=== PATIENT | male | born 2000 | race Asian ===

== ENCOUNTER 2024-03-20 18:19 | Emergency (ER) | payer OTHER ==
[2024-03-20 18:43] VITALS: TEMP 97.7; BMI 28.7
[2024-03-20] MEDS: SODIUM CHLORIDE 0.9% 500 ML INFUS.BAG IV ONE (19:41)
[2024-03-20 19:47] LABS: BASO % 0.6 % (0-2.0); EOS % 1.9 % (0-4.5); HEMATOCRIT 42.4 % (35.4-49); HEMOGLOBIN 14.3 GM/dL (11.7-16.9); LYMPH % 36.3 % (8-40); MCH 31.6 pg (25.7-33.7); MCHC 33.8 g/dl (32.0-35.9); MEAN CELL VOLUME 93.6 fl (80-96); MONO % 8.4 % (3.8-10.2); NEUT % 52.8 % (42.8-82.8); PLATELET COUNT 206 10^3/uL (134-434); RBC 4.53 M/mm3 (4.00-5.60); RDW 12.8 % (11.9-15.9); WHITE BLOOD COUNT 7.3 K/mm3 (4.0-10.0)
[2024-03-20 20:07] LABS: CHLORIDE 106 mmol/L (98-107); SODIUM 135 mmol/L (136-145)
[2024-03-20 20:09] LABS: ALBUMIN 4.1 g/dl (3.4-5.0); CALCIUM 8.9 mg/dL (8.5-10.1)
[2024-03-20 20:10] LABS: BLOOD UREA NITROGEN 15.6 mg/dL (7-18); CO2 27 mmol/L (21-32); GLUCOSE,RANDOM 101 mg/dL (74-106)
[2024-03-20 20:13] LABS: CREATININE 1.1 mg/dL (0.55-1.3); SGOT/AST 75 U/L (15-37)
[2024-03-20 20:20] LABS: BILIRUBIN,TOTAL 0.7 mg/dL (0.2-1); TOT PROT 7.4 g/dl (6.4-8.2)
[2024-03-20 20:21] LABS: ALK PHOS 82 U/L (45-117)
[2024-03-20 20:32] LABS: ANION GAP 2 mmol/L (4-13); POTASSIUM 6.2 mmol/L (3.5-5.1); SGPT/ALT 37 U/L (13-61)
[2024-03-20 21:24] LABS: POTASSIUM 3.6 mmol/L (3.5-5.1)
[2024-03-20 21:26] LABS: ALBUMIN 3.6 g/dl (3.4-5.0); CALCIUM 8.3 mg/dL (8.5-10.1)
[2024-03-20 21:31] LABS: BILIRUBIN,TOTAL 0.5 mg/dL (0.2-1); TOT PROT 6.3 g/dl (6.4-8.2)
[2024-03-20 21:51] LABS: URINE APPEARANCE CLEAR; URINE BILIRUBIN NEGATIVE (NEGATIVE); URINE COLOR YELLOW; URINE GLUCOSE (UA) NEGATIVE (NEGATIVE); URINE KETONE NEGATIVE (NEGATIVE); URINE LEUK ESTERASE NEGATIVE (NEGATIVE); URINE NITRITE NEGATIVE (NEGATIVE); URINE PROTEIN NEGATIVE (NEGATIVE)
[2024-03-20 22:04] LABS: COCAINE, UR NEGATIVE (NEGATIVE); URINE AMPHETAMINES NEGATIVE (NEGATIVE); URINE BARBITURATES NEGATIVE (NEGATIVE)
[2024-03-20 22:05] LABS: METHADONE, UR NEGATIVE (NEGATIVE); OPIATES, URI NEGATIVE (NEGATIVE); PHENCYCLIDINE,URINE NEGATIVE (NEGATIVE)
[2024-03-20 22:06] LABS: URINE BENZODIAZEPINES POSITIVE (NEGATIVE)
[2024-03-21 01:00] VITALS: BP 126/81; PULSE 53; RESP 20
== END 2024-03-21 01:52 | disposition short-term general hospital (02) ==
LOC: JER 18:19
DX: F32.A Depression, unspecified (principal); I95.9 Hypotension, unspecified; T42.4X4A Poisoning by benzodiazepines, undetermined, initial encounter; Z20.822 Contact with and (suspected) exposure to COVID-19
CPT/HCPCS: 0241U-QW; 36415; 80053; 80307; 81003; 82962; 85025; 93005; 93010; 99285-25

== ENCOUNTER 2024-03-21 02:36 | Inpatient (IN) | payer OTHER ==
[2024-03-21 02:42] VITALS: BMI 27.5
[2024-03-21] MEDS ORDERED: IBUPROFEN 400 MG TABLET (FP) PO PRN (03:10)
[2024-03-21] MEDS ORDERED: MAGNESIUM HYDROX 2400MG/30ML ORAL SUSPENSION 30 ML CUP PO PRN (03:10)
[2024-03-21] MEDS ORDERED: IBUPROFEN 600 MG TABLET (FP) PO PRN (03:10)
[2024-03-21] MEDS ORDERED: NALOXONE (NARCAN) HCL 4 MG/0.1 ML SPRAY NS PRN (03:10)
[2024-03-21] MEDS ORDERED: BENZOCAINE/MENTHOL (CHLORASEPTIC ) LOZENGE MM PRN (03:10)
[2024-03-21] MEDS ORDERED: BISMUTH SUBSALICYLATE 524 MG/30 ML PO PRN (03:10)
[2024-03-21] MEDS ORDERED: BENZONATATE 200 MG CAPSULE PO PRN (03:10)
[2024-03-21] MEDS ORDERED: POLYETHYLENE GLYCOL (HEALTHYLAX) 3350 17 GM PACKET PO PRN (03:10)
[2024-03-21] MEDS ORDERED: guaiFENesin 600 MG TABLET.ER (FP) PO PRN (03:10)
[2024-03-21] MEDS ORDERED: MAG HYDROX/AL HYDROX/SIMETH 30 ML UNIT-DOSE CUP PO PRN (03:10)
[2024-03-21] MEDS ORDERED: LOPERAMIDE HCL 2 MG CAPSULE PO PRN (03:10)
[2024-03-21] MEDS ORDERED: DICYCLOMINE HCL 10 MG CAPSULE PO PRN (03:10)
[2024-03-21] MEDS: hydrOXYzine PAMOATE 50 MG CAPSULE (FP) PO ONE (03:26)
[2024-03-21] MEDS: NICOTINE POLACRILEX 4 MG GUM BUC PRN (04:09)
[2024-03-21] MEDS: PRENATAL VITAMINS W/ FOLIC ACID TABLET (FP) PO SCH (10:11)
[2024-03-21] MEDS: NICOTINE 21 MG/24 HOURS TOPICAL PATCH TD SCH (10:11)
[2024-03-21] MEDS: ACETAMINOPHEN 325 MG TABLET (FP) PO PRN (11:55)
[2024-03-21] MEDS: ONDANSETRON *ODT* 4 MG TABLET SL PRN (11:55)
[2024-03-21] MEDS: hydrOXYzine PAMOATE 25 MG CAPSULE (FP) PO PRN (11:56)
[2024-03-21] MEDS: METHOCARBAMOL 500 MG TABLET PO PRN (11:56)
[2024-03-21 14:58] LABS: HEMATOCRIT 47.5 % (35.4-49); HEMOGLOBIN 15.6 GM/dL (11.7-16.9); MCH 31.5 pg (25.7-33.7); MCHC 32.9 g/dl (32.0-35.9); MEAN CELL VOLUME 95.9 fl (80-96); MEAN PLT VOLUME 8.4 fl (7.5-11.1); PLATELET COUNT 208 10^3/uL (134-434); RBC 4.96 M/mm3 (4.00-5.60); WHITE BLOOD COUNT 7.4 K/mm3 (4.0-10.0)
[2024-03-21 17:10] LABS: CHLORIDE 111 mmol/L (98-107); POTASSIUM 4.3 mmol/L (3.5-5.1); SODIUM 141 mmol/L (136-145)
[2024-03-21 17:18] LABS: ALBUMIN 3.6 g/dl (3.4-5.0); CALCIUM 8.7 mg/dL (8.5-10.1)
[2024-03-21 17:19] LABS: ANION GAP 4 mmol/L (4-13); BLOOD UREA NITROGEN 11.8 mg/dL (7-18); CO2 26 mmol/L (21-32); GLUCOSE,RANDOM 87 mg/dL (74-106)
[2024-03-21 17:21] LABS: CREATININE 0.9 mg/dL (0.55-1.3); SGOT/AST 24 U/L (15-37); SGPT/ALT 29 U/L (13-61)
[2024-03-21 17:23] LABS: TOT PROT 6.4 g/dl (6.4-8.2)
[2024-03-21 17:24] LABS: ALK PHOS 67 U/L (45-117); BILIRUBIN,TOTAL 1.6 mg/dL (0.2-1)
[2024-03-21] MEDS: risperiDONE 1 MG TABLET PO SCH (21:42)
[2024-03-21] MEDS: MELATONIN 5 MG TABLETS PO SCH (21:43)
[2024-03-21] MEDS: THIAMINE 100 MG TABLET PO SCH (21:43)
[2024-03-22] MEDS: diazePAM 5 MG TABLET PO SCH (10:07)
[2024-03-22] MEDS: NALOXONE (NYS OPIOID OVERDOSE PROGRAM) 4 MG/0.1 ML SPRAY NS ONE (13:04)
[2024-03-22] MEDS: diazePAM 5 MG TABLET PO PRN (13:53)
[2024-03-24] MEDS: diazePAM 5 MG TABLET PO SCH (06:04)
[2024-03-24 08:58] VITALS: BP 103/58; PULSE 93; RESP 18; TEMP 97.3
[2024-03-24] MEDS: NALOXONE (NYS OPIOID OVERDOSE PROGRAM) 4 MG/0.1 ML SPRAY NS PRN (11:29)
[2024-03-25] MEDS ORDERED: diazePAM 5 MG TABLET PO SCH (06:00)
[2024-03-26] MEDS ORDERED: diazePAM 5 MG TABLET PO ONE (06:00)
== END 2024-03-24 11:33 | disposition left against medical advice (07) | DRG 770 ==
LOC: YASAS 02:36 → Y3N 03:11
PROVIDERS: ADMIT Allergy & Immunology; ATTEND Allergy & Immunology
PROC: HZ2ZZZZ Detoxification Services for Substance Abuse Treatment (ICD-10-PCS; principal; 2024-03-21)
DX: F10.230 Alcohol dependence with withdrawal, uncomplicated (principal); F13.230 Sedative, hypnotic or anxiolytic dependence with withdrawal, uncomplicated; F12.20 Cannabis dependence, uncomplicated; F17.210 Nicotine dependence, cigarettes, uncomplicated; F31.9 Bipolar disorder, unspecified; F19.24 Other psychoactive substance dependence with psychoactive substance-induced mood disorder; F41.9 Anxiety disorder, unspecified; F43.10 Post-traumatic stress disorder, unspecified; Z87.828 Personal history of other (healed) physical injury and trauma
CPT/HCPCS: 0241U-QW; 36415; 80053; 80305; 80307; 81003; 82962; 85025; 85027; 86780; 93005; 93010; 99284-25; Q0162